=== PATIENT | female | born 1950 | race Caucasian/White ===

== ENCOUNTER → 2016-05-30 | Outpatient (CLI) | payer MEDICARE, OTHER ==
--- NOTE | 2016-05-30 14:34 | REP ---
Low-dose screening lung cancer CT study without contrast: History: Tobacco use. Comparison CT study of the chest is from [facility] dated December 28, 2009. CT findings: There is emphysematous change and hyperinflation particularly in the upper lobes bilaterally unchanged from the prior study. Some right apical pleuroparenchymal fibrosis is again noted. There is a granulomatous calcification with some adjacent fibrosis in the left upper lobe unchanged from the [address] images demonstrate a 4 mm noncalcified pulmonary nodular density in the left lower lobe on slice #68 of 97. This was not apparent previously. It merits follow-up. No other significant pulmonary nodule is seen. The exam is otherwise unremarkable. Impression: Positive low-dose lung CT study. 4 mm noncalcified nodule left lower lobe. By Fleischner's Society criteria a follow-up chest CT would be recommended in 6 months. Signed by Arturo Oglesby MD 05/30/2016 03:22 P
== END ==
LOC: M RAD 12:46
PROVIDERS: ATTEND Internal Medicine Pulmonary Disease
DX: Z12.2 Encounter for screening for malignant neoplasm of respiratory organs (principal); R91.1 Solitary pulmonary nodule; Z87.891 Personal history of nicotine dependence

== ENCOUNTER → 2016-06-26 | Outpatient (CLI) | payer MEDICARE, OTHER ==
--- NOTE | 2016-06-26 12:50 | REP ---
MR BRAIN WITHOUT CONTRAST: HISTORY: Dystonia. Scattered punctate areas of increased signal intensity on T2-weighted images are present in the periventricular and subcortical white matter and jeannine. This represents small vessel ischemic disease. There is no intraparenchymal hemorrhage, infarct, mass, or midline shift. The sella turcica is partially empty. The ventricular system is normal in appearance. There is no extracerebral collection. Mucosal thickening is present in the right mastoid air cells and left maxillary sinus. IMPRESSION: Minimal small vessel ischemic disease. Signed by Surya Silva MD 06/26/2016 01:07 P
== END ==
LOC: M RAD 11:12
PROVIDERS: ATTEND Physical Medicine & Rehabilitation
DX: G24.8 Other dystonia (principal); I67.82 Cerebral ischemia

== ENCOUNTER → 2016-12-21 | Outpatient (CLI) | payer MEDICARE, OTHER ==
--- NOTE | 2016-12-21 18:16 | REP ---
LOW DOSE LUNG SCREENING CT: Low dose lung screening CT performed in the axial plane and compared to prior study of 05/30/2016 as well as other prior exams. A new ill-defined nodular opacity is seen in the right medial suprahilar region measuring 8 mm in diameter. There is diffuse interstitial fibrosis again seen bilaterally unchanged. There is calcified granuloma in the left upper lobe and another in the right lower lobe. There is right apical pleural and parenchymal scarring and thickening which is stable. Heart is normal in size. Mediastinal contour is grossly unchanged. There are calcifications in the thoracic aorta. IMPRESSION: Positive low dose lung screening CT. There is a new-ill defined nodular density in the right medial suprahilar region on image 30 of 104. This measures 8 mm in diameter. Recommend dedicated CT of the chest with and without contrast. Signed by Cristopher Morse MD 12/21/2016 07:57 P
== END ==
LOC: M RAD 14:46
PROVIDERS: ATTEND Internal Medicine Pulmonary Disease
DX: Z12.2 Encounter for screening for malignant neoplasm of respiratory organs (principal); Z87.891 Personal history of nicotine dependence; J44.9 Chronic obstructive pulmonary disease, unspecified; R91.8 Other nonspecific abnormal finding of lung field

== ENCOUNTER → 2017-08-06 | Outpatient (CLI) | payer MEDICARE, OTHER | LOC: M RAD 14:52 | DX: Z12.2 Encounter for screening for malignant neoplasm of respiratory organs (principal); R91.8 Other nonspecific abnormal finding of lung field (principal); Z87.891 Personal history of nicotine dependence | CPT/HCPCS: G0297 ==

== ENCOUNTER → 2018-07-31 | Outpatient (CLI) | payer MEDICARE, OTHER ==
--- NOTE | 2018-07-31 14:27 | REP ---
REASON: Tobacco abuse. COMPARISON: Multiple, the latest 08/06/2018. As per the protocol only lung window images were sent to the read station for interpretation. There biapical pleuroparenchymal scarring with lung field hyperexpansion and emphysematous change status quo. There is evidence of traction, cylindrical bronchiectasis throughout the lung don[place]ue, status quo. There are no new abnormal nodules, masses, or opacities. There is a tiny 3 mm size nodule in the anterior segment of the left upper lobe which has been stable for years. IMPRESSION: Chronic lung donahue changes as described above. Lung RADS category 2. According to the revised Fleischner's Society criteria, yearly screening CT examination of the lungs is recommended. Electronically Signed by Ant Irvin DO 07/31/2018 03:27 P
== END ==
LOC: M RAD 13:38
PROVIDERS: ATTEND Internal Medicine Pulmonary Disease
DX: R91.8 Other nonspecific abnormal finding of lung field (principal); Z87.891 Personal history of nicotine dependence

== ENCOUNTER → 2018-11-11 | Outpatient (REF) | payer MEDICARE, OTHER | LOC: M LAB REF 17:00 | PROVIDERS: ATTEND Nurse Practitioner Family | DX: L08.9 Local infection of the skin and subcutaneous tissue, unspecified (principal) ==

== ENCOUNTER → 2019-08-06 | Outpatient (CLI) | payer MEDICARE, OTHER ==
--- NOTE | 2019-08-06 14:07 | REP ---
LOW DOSE LUNG SCREENING CT: Low dose lung screening CT exam is performed and compared to several prior studies, most recently 07/31/2018. The previously noted 3-4 mm nodule in the left upper lobe remains stable since 2017 consistent with a benign entity. A 2 mm nodule is stable in the anterior right upper lobe. Scattered interstitial fibrotic scarring is seen diffusely bilaterally. No consolidation or new nodule is seen. Mediastinal contour is unremarkable. The heart is normal in size. No pleural effusion is seen. There are degenerative changes of the spine. IMPRESSION: Lung RADS category [address] exam. Stable 3-4 mm nodule left upper lobe. No new nodule. Followup recommended in 1 year. Electronically Signed by Cristopher Morse MD 08/06/2019 02:10 P
== END ==
LOC: M RAD 12:36
PROVIDERS: ATTEND Internal Medicine Pulmonary Disease
DX: Z12.2 Encounter for screening for malignant neoplasm of respiratory organs (principal); Z87.891 Personal history of nicotine dependence; R91.8 Other nonspecific abnormal finding of lung field

== ENCOUNTER → 2021-02-16 | Outpatient (CLI) | payer MEDICARE, OTHER ==
--- NOTE | 2021-02-16 16:28 | REP ---
INDICATION: SMOKER. COMPARISON: Multiple the latest 08/06/2019 also low-dose screening CT of the lungs TECHNIQUE: Axial noncontrast images from the thoracic inlet to the upper abdomen using low-dose lung screening technique (LDCT). As per the protocol only lung window images were sent to the read station for interpretation FINDINGS: There is right apical pleuroparenchymal scarring status quo. There is a new 5.2 x 2.2 cm sized left lower lobe pleural based mass with irregular margins. There is a new right lower lobe irregular 1 x 0.8 cm sized pleural base nodule. There is lung field hyperexpansion with emphysematous change status quo. There is cylindrical bronchiectasis status quo. Grossly, the mediastinum and pulmonary fernando are unchanged. Grossly, the imaged upper abdomen and imaged osseous structures are unchanged. IMPRESSION: Two new abnormal lung base opacities as described above. Infectious versus neoplastic change. Standard contrast-enhanced diagnostic CT examination the chest is recommended. PET-CT could be obtained at this time if clinically relevant. <Electronically signed by Ant Irvin > 02/16/21 [id number]
== END ==
LOC: M RAD 15:14
PROVIDERS: ATTEND Internal Medicine Pulmonary Disease
DX: Z12.2 Encounter for screening for malignant neoplasm of respiratory organs (principal); Z87.891 Personal history of nicotine dependence; R91.8 Other nonspecific abnormal finding of lung field; J43.9 Emphysema, unspecified

== ENCOUNTER → 2021-05-24 | Outpatient (CLI) | payer MEDICARE, OTHER | LOC: M RAD 13:19 | PROVIDERS: ATTEND Internal Medicine Pulmonary Disease | DX: J96.22 Acute and chronic respiratory failure with hypercapnia (principal); J43.9 Emphysema, unspecified; I70.0 Atherosclerosis of aorta; I25.10 Atherosclerotic heart disease of native coronary artery without angina pectoris ==

== ENCOUNTER → 2022-12-27 | Outpatient (CLI) | payer MEDICARE, OTHER | LOC: M LAB 14:54 | PROVIDERS: ATTEND Internal Medicine Pulmonary Disease | DX: J96.22 Acute and chronic respiratory failure with hypercapnia (principal) ==

== ENCOUNTER 2023-08-10 14:08 | Emergency (ER) | payer MEDICARE, OTHER ==
[~2023-08-10] VITALS: Ht 152.4 cm; Wt 74.5 kg
[2023-08-10] MEDS ORDERED: DOXY100T (14:20)
[2023-08-10] MEDS ORDERED: PRED20TA (14:20)
[2023-08-10 15:07] LABS: VENOUS BASE EXCESS 19.5 (-2.0-2.0); VENOUS HCO3 50.1 MMOL/L (23.0-27.0); VENOUS O2 SATURATION 96.8 % (60.0-80.0); VENOUS PARTIAL PRESSURE CO2 92.2 mmHg (38.0-50.0); VENOUS PH 7.353 UNITS (7.330-7.430); VENOUS STANDARD HCO3 43.8 MMOL/L; VENOUS TOTAL CO2 52.9 MMOL/L (24.0-28.0)
[2023-08-10 15:15] LABS: BASO % 0.3 % (0.0-1.0); EOS # 0.1 10^3/uL (0.0-0.5); EOS % 1.1 % (0.0-3.0); HEMATOCRIT 42.2 % (36.0-47.0); HEMOGLOBIN 12.3 g/dl (12.0-15.5); LYMPH # 1.3 10^3/uL (1.5-5.0); LYMPH % 11.4 % (24.0-44.0); MEAN CORPUSCULAR HEMOGLOBIN 28.5 pg (27.0-33.0); MEAN CORPUSCULAR HGB CONC 29.1 g/dl (32.0-36.5); MEAN CORPUSCULAR VOLUME 97.7 fl (80.0-96.0); MONO % 8.8 % (2.0-8.0); NEUTROPHILS # 8.9 10^3/uL (1.5-8.5); NEUTROPHILS % 77.9 % (36.0-66.0); PLATELET COUNT, AUTOMATED 224 10^3/uL (150-450); RED BLOOD COUNT 4.32 10^6/uL (4.00-5.40); WHITE BLOOD COUNT 11.4 10^3/uL (4.0-10.0)
[2023-08-10 15:49] LABS: ALBUMIN 3.5 G/DL (3.2-5.2); ALKALINE PHOSPHATASE 75 U/L (46-116); ALT/SGPT 10 U/L (7.0-40); AST/SGOT 10 U/L (<34); BILIRUBIN,DIRECT < 0.1 MG/DL (<0.4); BILIRUBIN,TOTAL 0.3 MG/DL (0.3-1.2); BLOOD UREA NITROGEN 24 MG/DL (9-23); CALCIUM LEVEL 9.4 MG/DL (8.3-10.6); CARBON DIOXIDE LEVEL > 40.0 MMOL/L (20-31); CHLORIDE LEVEL 93 MMOL/L (98-107); CREATININE FOR GFR 1.12 MG/DL (0.55-1.30); GLOMERULAR FILTRATION RATE 50.6 (>39); GLUCOSE, FASTING 130 MG/DL (74-106); POTASSIUM SERUM 3.5 MMOL/L (3.5-5.1); SODIUM LEVEL 143 MMOL/L (136-145); TOTAL PROTEIN 7.2 G/DL (5.7-8.2)
[2023-08-10 17:51] LABS: CK-MB VALUE MASS < 1.0 NG/ML (<3.6)
[2023-08-10 17:52] LABS: CPK CREATINE PHOSPHOKINASE 39 U/L (34-145); MB/CK RELATIVE INDEX 2.56 (< OR =4)
[2023-08-10] MEDS ORDERED: ISOVUE-370 76% 100ML VIAL As Ordered ONE (17:52)
[2023-08-10] MEDS: IPRATROPIUM 0.5MG/ALBUTEROL 2.5MG INH SOL UD 3ML (DUONEB) NEB ONE (18:02)
[2023-08-10] MEDS: methylPREDNISolone 125MG 2ML VIAL IV ONE (18:14)
[2023-08-10] MEDS: diphenhydrAMINE 50MG/ML VIAL IV ONE (18:14)
[2023-08-10 20:41] VITALS: O2SAT 98
[2023-08-10] MEDS ORDERED: PRED10TA2 PO (21:10)
[2023-08-10] MEDS ORDERED: PRED20TA PO (21:11)
[2023-08-10 21:33] VITALS: BP 144/77; TEMP 98.6; O2SAT 98
== END 2023-08-10 21:34 | disposition home or self-care (01) ==
LOC: M ED 14:08
DX: J44.1 Chronic obstructive pulmonary disease with (acute) exacerbation (principal); J06.9 Acute upper respiratory infection, unspecified; R91.8 Other nonspecific abnormal finding of lung field; I10 Essential (primary) hypertension; J44.9 Chronic obstructive pulmonary disease, unspecified; E78.5 Hyperlipidemia, unspecified; E03.9 Hypothyroidism, unspecified; Z99.81 Dependence on supplemental oxygen; Z87.891 Personal history of nicotine dependence; Z91.041 Radiographic dye allergy status
CPT/HCPCS: 71045; 71275; 80048; 80076; 82550; 82553; 82803; 83880; 84484; 85025; 87040; 87486; 87581; 87633; 87798; 93005; 93041; 94640; 94760; 96374; 96375; 99285; J1200; J2919; Q9967